=== PATIENT | male | born 1980 | race Caucasian/White ===

== ENCOUNTER 2019-01-19 11:51 | Emergency (ER) | payer SELFPAY ==
[~2019-01-19] VITALS: Ht 170.2 cm; Wt 65.0 kg
[~2019-01-19 11:51] MED LIST: CEPH-443 PO
[2019-01-19 12:01] VITALS: BP 131/89; PULSE 101; RESP 18; Ht 170.2 cm; Wt 65.0 kg
[2019-01-19] MEDS ORDERED: LIDOCAINE 2%/EPI MPF (SDV) 20 ML VIAL INJ STA (12:14)
[2019-01-19] MEDS ORDERED: DIPHTH/TET/ACEL PERTUSS (ADULT) 0.5 ML VIAL IM* ONE (12:30)
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
== END 2019-01-19 14:33 | disposition home or self-care (01) ==
LOC: E/R 11:51
DX: S61.012A Laceration without foreign body of left thumb without damage to nail, initial encounter (principal); X99.1XXA Assault by knife, initial encounter; Z23 Encounter for immunization
CPT/HCPCS: 90471